=== PATIENT | female | born 1975 | race Caucasian/White ===

== ENCOUNTER 2017-02-15 05:39 | Day surgery (SDC) | payer OTHER ==
[2017-02-12 13:44] LABS: BASOPHILS % (AUTO) 0.6 % (0.0-2.0); EOSINOPHILS # (AUTO) 0.1 K/uL (0.0-0.4); EOSINOPHILS % (AUTO) 1.4 % (0.0-4.0); HEMATOCRIT 36.3 % (36-48); LYMPHOCYTES # (AUTO) 1.8 K/uL (1.0-5.5); LYMPHOCYTES % (AUTO) 25.2 % (20.5-51.5); MEAN CORPUSCULAR HEMOGLOBIN 27 pg (27-31); MEAN CORPUSCULAR HGB CONC 33 % (32-36); MEAN CORPUSCULAR VOLUME 80 fL (79.0-98.0); MONOCYTES # (AUTO) 0.4 K/uL (0.0-1.0); MONOCYTES % (AUTO) 5.7 % (1.7-9.3); NEUTROPHILS # (AUTO) 4.7 K/uL (1.8-7.7); NEUTROPHILS % (AUTO) 67.1 % (40.0-70.0); PLATELET COUNT (AUTO) 306 K/uL (130-430); RED BLOOD CELL COUNT(AUTO) 4.52 MIL/uL (4.2-6.2); RED CELL DISTRIBUTION WIDTH 12.8 % (9.0-15.0)
[2017-02-12 13:46] LABS: BILIRUBIN,URINE NEGATIVE (NEGATIVE); BLOOD, URINE 3+ (NEGATIVE); CLARITY/URINE CLEAR (CLEAR); COLOR,URINE YELLOW (YELLOW); GLUCOSE,URINE NEGATIVE (NEGATIVE); KETONES,URINE TRACE (NEGATIVE); LEUKOCYTE ESTERASE ,URINE NEGATIVE (NEGATIVE); NITRITE, URINE NEGATIVE (NEGATIVE); PROTEIN URINE NEGATIVE (NEGATIVE); UROBILINOGEN,URINE 0.2 (0.2-1.0)
[2017-02-12 13:53] LABS: CALCIUM 8.9 mg/dL (8.4-11.0); CREATININE 0.65 mg/dL (0.55-1.30); POTASSIUM 3.5 mmol/L (3.5-5.1)
[2017-02-12 13:55] LABS: BACTERIA,URINE FEW /HPF (None Seen); RBC,URINE 0-3 /HPF (0-3); WBC,URINE 0-3 /HPF (0-3)
[~2017-02-15] VITALS: Ht 165.1 cm; Wt 73.9 kg
[2017-02-15] MEDS ORDERED: CEFAZOLIN SOD 1 GM in D5W 50 ML IV ONE (07:00)
[2017-02-15] MEDS ORDERED: PROPOFOL 200MG/ 20ML VIAL (DIPRIVAN) IV ONE (07:03)
[2017-02-15] MEDS ORDERED: SEVOFLURANE 15 MIN GAS INH ONE (07:03)
[2017-02-15] MEDS ORDERED: fentaNYL CITRATE/PF 100 MCG/2 ML AMP IVP ONE (07:03)
[2017-02-15] MEDS ORDERED: BUPIVACAINE /EPINEPHRINE/PF 0.5% 30 ML VIAL INJ ONE (07:03)
[2017-02-15] MEDS ORDERED: NS 1000 ML BAG IV ONE (07:03)
[2017-02-15] MEDS ORDERED: ONDANSETRON HCL 4 MG/2 ML VIAL IVP ONE (07:03)
[2017-02-15] MEDS ORDERED: KETOROLAC TROMETHAMINE 30 MG VIAL IVP ONE (07:03)
[2017-02-15] MEDS ORDERED: GLYCOPYRROLATE 0.2 MG/ML VIAL IJ ONE (07:03)
[2017-02-15] MEDS ORDERED: MIDAZOLAM HCL 5 MG/5 ML VIAL IVP ONE (07:03)
[2017-02-15] MEDS ORDERED: LR 1,000 ML IV.SOLN IV ONE (07:03)
[2017-02-15] MEDS ORDERED: LR 1,000 ML IV SCH (08:11)
[2017-02-15] MEDS ORDERED: MEPERIDINE HCL/PF 25 MG/ML DISP.SYRIN IVP PRN ×2 (08:15)
[2017-02-15] MEDS ORDERED: KETOROLAC TROMETHAMINE 30 MG VIAL IVP PRN (08:15)
[2017-02-15] MEDS ORDERED: HYDROmorphone 1 MG INJ. 1 MG/ML AMPUL IVP PRN (08:15)
[2017-02-15] MEDS ORDERED: HYDROmorphone 2 MG/ML VIAL IVP PRN ×2 (08:15)
[2017-02-15] MEDS ORDERED: ONDANSETRON HCL 4 MG/2 ML VIAL IVP PRN ×2 (08:15→10:30)
[2017-02-15] MEDS ORDERED: IBUPROFEN 800 MG TABLET PO PRN (10:30)
[2017-02-15] MEDS ORDERED: OXYCODONE/ACETAMINOPHEN 5-325 TABLET PO PRN ×2 (10:30)
[2017-02-15] MEDS ORDERED: ONDANSETRON HCL 4 MG/2 ML VIAL ONE (11:19)
[2017-02-15] MEDS ORDERED: PROCHLORPERAZINE EDISYLATE 10 MG/2 ML VIAL IVP PRN (12:15)
[2017-02-15] MEDS ORDERED: PROCHLORPERAZINE EDISYLATE 10 MG/2 ML VIAL IVP ONE (12:30)
[2017-02-15 12:31] VITALS: BP_SYST 120
== END 2017-02-15 15:00 | disposition home or self-care (01) ==
LOC: SDS 05:39 → STU 05:40 → SDS 15:00
PROVIDERS: ATTEND Obstetrics & Gynecology
DX: D25.9 Leiomyoma of uterus, unspecified (principal); N81.10 Cystocele, unspecified; Z98.890 Other specified postprocedural states
CPT/HCPCS: 36415; 58571; 80048; 81000; 84703; 85025; 86886; 86900; 86901; 88307; C1727; J0690; J0780; J1885; J2250; J2405; J2704; J3010; J3490 ×2; J7030; J7060; J7120; E0190

== ENCOUNTER 2018-04-04 07:35 | Emergency (ER) | payer OTHER ==
[~2018-04-04] VITALS: Ht 165.1 cm; Wt 70.3 kg
[2018-04-04 07:40] VITALS: BP_SYST 148
--- NOTE | 2018-04-04 07:44 | NUR ---
Patient to ER bed 8 to gown for evaluation. Side rails up. Report given to Conrad FLOREZ.
--- NOTE | 2018-04-04 07:45 | NUR ---
pt presents to ED c/o dizziness and RODRIGUEZ s/p breast implant sx. Pt reports nausea and RODRIGUEZ worsening today. Pt has f/u appt today. Pt had one episode of vomiting in ED. Pt ambulated to [facility], steady gait w/o assist.
[2018-04-04] MEDS ORDERED: ONDANSETRON HCL 4 MG/2 ML VIAL ONE (07:52)
--- NOTE | 2018-04-04 07:55 | NUR ---
ER at bedside examining patient.
[2018-04-04] MEDS ORDERED: ONDANSETRON HCL 4 MG/2 ML VIAL IVP ONE ×2 (08:00→08:45)
[2018-04-04] MEDS ORDERED: LORazepam 2 MG/ML VIAL (FOR ER USE) IVP ONE ×2 (08:00→08:15)
--- NOTE | 2018-04-04 08:07 | NUR ---
Pt medicated tolerated well. Continuing to monitor.
--- NOTE | 2018-04-04 08:15 | NUR ---
Patient transported to radiology via gurney, accompanied by rad staff.
[2018-04-04] MEDS ORDERED: KETOROLAC TROMETHAMINE 30 MG VIAL IVP ONE (08:45)
[2018-04-04] MEDS ORDERED: MECLIZINE HCL 25 MG TABLET (ANITVERT) PO ONE (09:15)
--- NOTE | 2018-04-04 10:00 | NUR ---
Pt s/s only mildly resolved and are worsening. Dr. lopez aware. Pt to recieve further evaluation.
[2018-04-04] MEDS ORDERED: DIPHENHYDRAMINE INJ 50 MG/ML VIAL IVP ONE (10:30)
[2018-04-04 10:47] LABS: BASOPHILS # (AUTO) 0.1 K/uL (0.0-0.2); BASOPHILS % (AUTO) 0.7 % (0.0-2.0); EOSINOPHILS # (AUTO) 0.1 K/uL (0.0-0.4); EOSINOPHILS % (AUTO) 1.8 % (0.0-4.0); HEMATOCRIT 39.1 % (36-48); HEMOGLOBIN 13.4 g/dL (12.0-16.0); LYMPHOCYTES # (AUTO) 2.1 K/uL (1.0-5.5); LYMPHOCYTES % (AUTO) 27.4 % (20.5-51.5); MEAN CORPUSCULAR HEMOGLOBIN 30 pg (27-31); MEAN CORPUSCULAR HGB CONC 34 % (32-36); MEAN CORPUSCULAR VOLUME 87 fL (79.0-98.0); MONOCYTES # (AUTO) 0.3 K/uL (0.0-1.0); MONOCYTES % (AUTO) 3.8 % (1.7-9.3); NEUTROPHILS % (AUTO) 66.3 % (40.0-70.0); PLATELET COUNT (AUTO) 251 K/uL (130-430); RED CELL DISTRIBUTION WIDTH 11.9 % (9.0-15.0); WHITE BLOOD COUNT (AUTO) 7.6 K/uL (4.8-10.8)
--- NOTE | 2018-04-04 11:00 | NUR ---
PT MEDICATED, WILL CONTINUE TO MONITOR FOR IMPROVEMENT PRIOR TO D/C
[2018-04-04 11:02] LABS: CALCIUM 9.3 mg/dL (8.4-11.0); CREATININE 0.5 mg/dL (0.55-1.30); POTASSIUM 3.1 mmol/L (3.5-5.1)
[2018-04-04 11:05] LABS: ALBUMIN 3.9 g/dL (3.4-4.8); TOTAL BILIRUBIN 0.4 mg/dL (0.0-1.0)
[2018-04-04] MEDS ORDERED: POTASSIUM CHLORIDE 20 MEQ TAB.PRT.SR PO ONE (12:15)
[2018-04-04 12:45] VITALS: BP_SYST 122
--- NOTE | 2018-04-04 12:45 | NUR ---
Patient given written and verbal discharge instructions and verbalizes understanding. ER MD discussed with patient the results and treatment provided. Patient in stable condition. ID arm band removed. IV catheter removed intact and dressing applied, no active bleeding. Rx of ANTIVERT given. Patient educated on pain management and to follow up with PMD. Pain Scale 0. Opportunity for questions provided and answered. Medication side effect fact sheet provided.
== END 2018-04-04 12:45 | disposition home or self-care (01) ==
LOC: SED 07:35
DX: R03.0 Elevated blood-pressure reading, without diagnosis of hypertension (principal); R51 Headache; Z90.710 Acquired absence of both cervix and uterus
CPT/HCPCS: 36415; 70450; 71045; 74176; 80053; 83605; 83690; 85025; 85610; 87040; 96374; 96375; 96376; 99285; J1200; J1885; J2060; J2405; J8597